=== PATIENT | male | born 1965 ===

== ENCOUNTER → 2018-04-25 09:20 | Day surgery (SDC) | payer BC ==
[~2018-04-25 09:20] MED LIST: Acetaminophen TAB* 325 MG ONE; Acetaminophen TAB* 325 MG PO ONE; Acetaminophen TAB* 325 MG PO PRN; Buffered Lidocaine 1% SYRIN* 1 ML/SYRINGE INTRADERM ONE; Bupivacaine 0.25% W/EPI* 10 ML SDV ONE; Dexamethasone IV* 4 MG/ML 1 ML (4 MG) ONE; DiMENhydriNATE IV* 50 MG/ML VIAL IV PUSH PRN; Famotidine IV* 10 MG/ML 2 ML (20 mg) ONE; Gabapentin CAP(*) 300 MG ONE; Gabapentin CAP(*) 300 MG PO ONE; HYDROcodone/ACETAMIN 5-325 MG* 1 TAB PO PRN; HYDROmorphone INJ1* 1 MG/ML SYRINGE IV PRN; Ketorolac INJ* 30 MG/ML 1 ML VIAL ONE; Lidocaine 2% PF * 5 ML VIAL ONE; Midazolam* 1 MG/ML 5 ML VIAL (5 MG) ONE; Naloxone* 0.4 MG/ML 1 ML VIAL IV PRN; Ondansetron INJ* 2 MG/ML VIAL IV PRN; PROCHLORPERAZINE INJ 5 MG/ML 2 ML VIAL IV PRN; Propofol* 10 MG/ML 20 ML BTL ONE; Rocuronium* 10 MG/ML VIAL ONE; ceFAZolin 2 GM PREMIX in ORs 2 GM/50 ML BAG IVPB ONE; diPHENhydraMINE IV* 50 MG/ML 1 ml VIAL (BENADRYL) IV PRN; fentaNYL* 50 MCG/ML 2 ML VIAL (100 MCG VIAL) IV PRN; fentaNYL* 50 MCG/ML 2 ML VIAL (100 MCG VIAL) ONE
[2018-04-25] MEDS: Lactated Ringers 1000 ML Bag* 1,000 ML IV SCH ×2 (09:52→09:55)
--- NOTE | 2018-04-25 13:16 | BRIEFOPN ---
Brief Operative Note - Surgery Procedures: OPERATIVE REPORT PRE-OP: Right inguinal hernia POST-OP: Right indirect inguinal hernia PROCEDURE:Totally extraperitoneal laparoscopic (TEPP) repair of right inguinal hernia with mesh. SURGEON: MD Sarah ANESTHESIA:Local with General, Dr. Cohen ASST:Jade Josue MD IVF:1 liter of crystalloid EBL:min SPECIMEN:None DRAIN: none WOUND CLASS:One COMPLICATIONS: none TO PACU
[2018-04-25 14:02] VITALS: BP 136/89
--- NOTE | 2018-04-25 20:44 | OP ---
DATE OF OPERATION: 04/25/18 - [facility] DATE OF : 63 SURGEON: Jose Smith MD ARCHIVES TECHNICIAN: Alexandro Josue MD ANESTHESIOLOGIST: Dr. Cohen. ANESTHESIA: General with local. PRE-OP DIAGNOSIS: Right inguinal hernia. POST-OP DIAGNOSIS: Right indirect inguinal hernia. OPERATIVE PROCEDURE: Totally extraperitoneal laparoscopic repair with mesh of a right indirect inguinal hernia. ESTIMATED BLOOD LOSS: Minimal. SPECIMENS: None. DRAINS: None. WOUND CLASSIFICATION: I. IV FLUIDS: 1 L of crystalloid. DESCRIPTION OF PROCEDURE: Written informed consent was obtained, the patient's right groin was marked with indelible ink and preoperative antibiotics were administered. The patient was taken to the operating room, placed in the supine position. Sequential compression devices and a warming blanket were applied. General anesthesia was administered. The abdomen and both groins were prepped and draped in the usual sterile fashion. Time-out verification was completed. Initially, a transverse incision was made just left of midline just below the umbilicus and the anterior rectus sheath was identified and divided transversely to expose the underlying rectus muscle. The muscle was retracted laterally to expose the posterior sheath and then the retrorectus space was developed inferiorly using a blunt Jenny and a finger and the Spacemaker balloon was then passed down through the space to the pubic tubercle without difficulty. The Spacemaker balloon was then inflated with about 15 squeezes of the mechanical bulb under direct vision of the camera to expose the extraperitoneal space. Once this was complete, the balloon was then deflated and removed and a 12-mm blunt port was inserted into the space and the extraperitoneal space was insufflated to 12 mmHg. The patient was placed in Trendelenburg position. Under direct vision, two 5-mm ports were placed in the midline, each several fingerbreadths below the original 12-mm blunt port. The pubic tubercle was identified initially as well as some of the Edwin's ligament to the left. We then worked medial to lateral along the right side exposing Edwin's ligament to the epigastric vessels which were identified and protected from injury throughout. Likewise, the anterior abdominal wall was developed laterally out to the iliac crest. Once this complete, we were able to identify the peritoneal edge laterally, we worked our way medially, and we identified an indirect inguinal hernia sac that was rather large and with some difficulty was reduced from the internal ring. Identified the vas deferens and spermatic cord and these structures were prevented from injury throughout. There did not appear to be a direct inguinal hernia. Once the peritoneum was reflected posteriorly well and the hernia completely reduced, we placed a 10 cm x 15 cm ProGrip Covidien mesh, and covered both the direct and the indirect space completely from the pubic tubercle to the iliac crest laterally. No tacks were placed. Hemostasis was assured. The abdomen was desufflated under direct vision and the mesh was assured to be adherent to the anterior abdominal wall. All ports were then removed. The rectus sheath was closed with interrupted 0 Vicryl suture. The skin of all 3 incisions was approximated with subcuticular 4-0 Vicryl suture. Steri-Strips were applied. The patient tolerated the procedure well and was taken to the recovery room in stable condition. [id number]/CPS #: [id number] MTDD
== END | disposition home or self-care (01) ==
LOC: OR 09:20
PROVIDERS: ATTEND Surgery
DX: K40.90 Unilateral inguinal hernia, without obstruction or gangrene, not specified as recurrent (principal); I10 Essential (primary) hypertension
CPT/HCPCS: A9270-GY; C1781; J0690; J1100; J1885; J2250; J2704; J3010